=== PATIENT | male | born 1965 | race African-American/Black ===

== ENCOUNTER 2024-12-03 13:00 | Emergency (ER) | payer MEDICARE, MEDICAID, SELFPAY ==
[2024-12-03 12:45] VITALS: BP 149/98; PULSE 71; TEMP 36.7; O2SAT 96; BMI 29.5
--- NOTE | 2024-12-03 13:16 | ED_ITS ---
HPI HPI - General Adult General Chief complaint: Altered Mental Status Stated complaint: HYPERGLYCEMIA Time Seen by Provider: 12/03/24 13:05 Source: patient Mode of arrival: ambulance History of Present Illness HPI narrative: 59-year-old male presents to the emergency department to be evaluated. He resides in a psychiatric facility and with their permission his nephew took him from that facility to the nephew's home last night. The weather turned bad and the nephew could not return him to the psychiatric facility. The patient was supposed to have insulin this morning but did not have it with him [facility] be checked out in the emergency department before he went back there. The patient himself does not have any complaints. He has no pain and there was no injury. Opioid HPI Opioid Management Most Recent Opioid Data: No Data to Display Review of Systems ROS Narrative A ten point review of systems is negative except as noted above. Exam Narrative Exam Narrative: Nurses note and vital signs reviewed and patient is not hypoxic. General: The patient appears well and in no apparent distress. Patient is resting comfortably on cart. Skin: Warm, dry, no pallor noted. There is no rash noted. Head: Normocephalic, atraumatic Eye: Normal conjunctiva, no drainage Ears, Nose, Mouth, and Throat: oral mucosa is moist. Nares patent. Cardiovascular: Regular Rate and Rhythm Respiratory: Patient is in no distress, no accessory muscle use, lungs are clear to auscultation, no wheezing, rales or rhonchi Back: non-tender, no CVA tenderness bilaterally to percussion. GI: Soft and nontender Musculoskeletal: The patient has no evidence of calf tenderness, no pitting edema, symmetrical pulses noted bilaterally Neurological: Awake and alert Psychiatric: Cooperative Constitutional Vital Signs, click to edit/add: Last Vital Signs Temp 98.0 F 12/03/24 12:45 Pulse 71 12/03/24 12:45 Resp 18 12/03/24 12:45 BP 149/98 H 12/03/24 12:45 Pulse Ox 96 12/03/24 12:45 O2 Del Method Room Air 12/03/24 12:45 Course Vital Signs Vital signs: Vital Signs Temperature 98.0 F 12/03/24 12:45 Pulse Rate 71 12/03/24 12:45 Respiratory Rate 18 12/03/24 12:45 Blood Pressure 149/98 H 02/13/25 12:45 Pulse Oximetry 96 12/03/24 12:45 Oxygen Delivery Method Room Air 12/03/24 12:45 Temperature 98.0 F 12/03/24 12:45 Pulse Rate 71 12/03/24 12:45 Respiratory Rate 18 12/03/24 12:45 Blood Pressure 149/98 H 12/03/24 12:45 Pulse Oximetry 96 12/03/24 12:45 Oxygen Delivery Method Room Air 12/03/24 12:45 Medical Decision Making MDM Narrative Medical decision making narrative: The patient was given his morning dose of insulin and is being discharged. Findings were discussed with the patient and the patient's family. He was minimally hyperglycemic, 244. Differential Diagnosis Differential Diagnosis: Hyperglycemia Lab Data Lab results reviewed: Yes I reviewed the patient's lab results Discharge Plan Discharge Chief Complaint: Altered Mental Status Clinical Impression: Hyperglycemia Patient Disposition: Home, Self-Care Time of Disposition Decision: 13:30 Condition: Good Mode of Transportation: Private Vehicle Print Language: Hungarian Instructions: Diabetic Hyperglycemia (ED) Referrals: Physician,Non-Staff, MD [Primary Care Provider] - 1 week
[2024-12-03] MEDS: INSULIN GLARGINE 300 UNIT/3 ML INSULN.PEN 90 UNIT SQ (13:19)
[2024-12-03 13:40] LABS: Glucometer 175 mg/dL (74-106)
== END 2024-12-03 13:45 | disposition home or self-care (01) ==
PROVIDERS: Emergency Provider Emergency Medicine; PCP Internal Medicine
DX: R73.9 Hyperglycemia, unspecified (principal); Z79.4 Long term (current) use of insulin
CPT/HCPCS: 36415; 82948; 99284